=== PATIENT | male | born 1955 | race Caucasian/White ===

== ENCOUNTER 2016-08-05 14:08 | Inpatient (IN) | payer MEDICARE ==
[~2016-08-05] VITALS: Ht 185.4 cm; Wt 69.2 kg
[2016-08-06] MEDS ORDERED: TOPROL XL50 MG PO (09:20)
[2016-08-06] MEDS ORDERED: ASPIRIN81 MG PO (09:21)
[2016-08-06] MEDS ORDERED: NITRO-DUR1 EAC5 TRDERM (09:27)
== END 2016-08-06 09:52 | disposition short-term general hospital (02) | DRG 293 ==
LOC: ER 14:08 → RT 14:09 → IP 16:40
PROVIDERS: ADMIT Family Medicine
PROC: B246ZZZ Ultrasonography of Right and Left Heart (ICD-10-PCS; principal; 2016-08-06)
DX: I11.0 Hypertensive heart disease with heart failure (principal); F17.210 Nicotine dependence, cigarettes, uncomplicated; F12.90 Cannabis use, unspecified, uncomplicated; J44.9 Chronic obstructive pulmonary disease, unspecified; I25.10 Atherosclerotic heart disease of native coronary artery without angina pectoris; Z86.73 Personal history of transient ischemic attack (TIA), and cerebral infarction without residual deficits; I50.9 Heart failure, unspecified; R41.89 Other symptoms and signs involving cognitive functions and awareness
CPT/HCPCS: A9150; A9270; J1650; J1940; J2060; J2270; J3490

== ENCOUNTER → 2016-08-15 | Outpatient (CLI) | payer MEDICARE ==
[~2016-08-15] MED LIST: ASPIRIN81 MG PO; NITRO-DUR1 EAC5 TRDERM; TOPROL XL50 MG PO
== END | disposition short-term general hospital (02) ==
LOC: CLCARD 08:09
DX: R07.9 Chest pain, unspecified (principal); J44.9 Chronic obstructive pulmonary disease, unspecified; E78.5 Hyperlipidemia, unspecified; I42.9 Cardiomyopathy, unspecified; I34.0 Nonrheumatic mitral (valve) insufficiency; Z72.0 Tobacco use